=== PATIENT | male | born 1995 | race Caucasian/White ===

== ENCOUNTER 2020-04-09 17:17 | Emergency (ER) | payer BC ==
[2020-04-09 17:31] VITALS: BP 136/96; PULSE 95; TEMP 99.1; BMI 20.2
[2020-04-09] MEDS ORDERED: PANTOPRAZOLE 40 MG TABLET PO ONE (17:49)
[2020-04-09] MEDS ORDERED: PANTOPRAZOLE 40 MG TABLET ONE (18:14)
== END 2020-04-09 18:59 | disposition home or self-care (01) ==
LOC: FER 17:17
DX: K29.70 Gastritis, unspecified, without bleeding (principal); K29.80 Duodenitis without bleeding
CPT/HCPCS: 93005; 99283-25